=== PATIENT | female | born 1985 | race Caucasian/White ===

== ENCOUNTER 2018-05-30 18:42 | Emergency (ER) | payer OTHER ==
--- NOTE | 2018-05-30 19:43 | Emergency Department Report ---
ED Chest Pain HPI - General Chief Complaint: Chest Pain Stated Complaint: CHEST PAIN/MEDICAL CLEARANCE Time Seen by Provider: 05/30/18 19:23 Source: EMS Mode of arrival: Stretcher Limitations: No Limitations - History of Present Illness Initial Comments: 33-year-old female presents via EMS from [facility], where she is being held involuntarily secondary to a suicide attempt by cutting her wrist, with complaint of some generalized chest pain. The patient came to the psychiatric facility from [place], where she lives. The patient says that on the day where she cut her wrist, she also had passed out. EMS was called and when they got to the house the patient apparently was unresponsive and they felt she was pulseless and CPR was initiated. She was checked out at a hospital in [place], where the 1013 was placed, and she says she had some x-rays done that were negative. However the patient continues to have this chest pain. It worsens with certain movements and with palpation and she feels like the chest wall is swollen. She otherwise denies any past medical history. Severity scale (0 -10): 10 - Related Data Previous Rx's Medication Instructions Recorded Last Taken Type Ibuprofen 600 mg PO Q8H PRN #20 tablet 05/30/18 Unknown Rx Allergies Allergy/AdvReac Type Severity Reaction Status Date / Time No Known Allergies Allergy Unverified 05/30/18 20:20 Heart Score - HEART Score History: Slightly suspicious EKG: Normal Age: < 45 Risk factors: No known risk factors Troponin: < normal limit HEART Score: 0 - Critical Actions Critical Actions: 0-3 pts:0.9-1.7%risk of adverse cardiac event.Candidate for discharge ED Review of Systems ROS: Stated complaint: CHEST PAIN/MEDICAL CLEARANCE Other details as noted in HPI Comment: All other systems reviewed and negative Constitutional: denies: chills, fever Eyes: denies: eye pain, vision change ENT: denies: ear pain, throat pain Respiratory: denies: cough, shortness of breath Cardiovascular: chest pain. denies: edema Gastrointestinal: denies: abdominal pain, vomiting Genitourinary: denies: dysuria, frequency Musculoskeletal: denies: back pain, arthralgia Skin: denies: rash, lesions Neurological: denies: headache, weakness ED Past Medical Hx - Medications Home Medications: Home Medications Medication Instructions Recorded Confirmed Last Taken Type Ibuprofen 600 mg PO Q8H PRN #20 tablet 05/30/18 Unknown Rx ED Physical Exam - General Limitations: No Limitations - Other Other exam information: GENERAL: The patient is well-developed well-nourished. HEENT: Normocephalic. Atraumatic. Patient has moist mucous membranes. EYES: Extraocular motions are intact. NECK: Supple. Trachea is midline. CHEST/LUNGS: Clear to auscultation. There is no respiratory distress noted. Chest pain is reproducible to palpation of the chest spell. No crepitus or deformity. HEART/CARDIOVASCULAR: Regular. There is no tachycardia. There is no obvious murmur. ABDOMEN: Abdomen is soft, nontender. Patient has normal bowel sounds. There is no abdominal distention. SKIN: Skin is warm and dry. NEURO: The patient is awake, alert, and oriented. The patient is cooperative. The patient has no focal neurologic deficits. The patient has normal speech. MUSCULOSKELETAL: There is no tenderness or deformity. There is no evidence of acute injury. ED Course Vital Signs 05/30/18 05/30/18 05/30/18 19:29 19:58 20:30 Temperature Pulse Rate 87 Respiratory 18 18 16 Rate Blood Pressure 104/65 [Right] O2 Sat by Pulse 98 Oximetry 05/30/18 05/30/18 05/30/18 20:35 21:00 21:30 Temperature 97.8 F Pulse Rate 84 Respiratory 16 16 16 Rate Blood Pressure 113/69 [Right] O2 Sat by Pulse 100 Oximetry 05/30/18 22:59 Temperature Pulse Rate 81 Respiratory 15 Rate Blood Pressure 107/64 [Right] O2 Sat by Pulse 95 Oximetry OFE score - Ofe Score Age > 65: (0) No Aspirin use within the Past 7 Days: (0) No 3 or more CAD Risk Factors: (0) No 2 or more Angina events in past 24 hrs: (1) Yes Known CAD with more than 50% Stenosis: (0) No Elevated Cardiac Markers: (0) No ST Deviation Greater than 0.5mm: (0) No OFE Score: 1 ED Medical Decision Making - Lab Data Result diagrams: 05/30/18 19:50 05/30/18 19:50 - EKG Data -: EKG Interpreted by Me EKG shows normal: sinus rhythm, axis, intervals, QRS complexes, ST-T waves (some flattening of the T waves) - EKG Data When compared to previous EKG there are: previous EKG unavailable Interpretation: other (flattening of the T waves. No STEMI) - Radiology Data Radiology results: image reviewed interpreted by me: Chest x-ray does not show any pneumothorax, pleural effusion, pneumonia or obvious focal consolidation. - Medical Decision Making Patient presents to the emergency department with some generalized chest pains that has been going on for the past 1-2 days since the patient had some unresponsive episode and had CPR performed on her. The patient was already evaluated once at a different hospital in the emergency department for this. The pain is reproducible to palpation of the chest wall. Heart and lung sounds are normal to auscultation. EKG does not show any signs of ST elevation HI, ischemia or dysrhythmia. Labs at that unremarkable including negative troponins 2 and a negative d-dimer. She is low on the heart and OFE score. The patient appears safe for discharge home at this time but she will be actually sent back to the psychiatric facility. She's been given a prescription for anti-inflammatories for her discomfort. She has been instructed to return to the emergency Department with any worsening of her symptoms or any acute distress. - Differential Diagnosis costochondritis, HI, PE, GERD Critical Care Time: No Critical care attestation.: If time is entered above; I have spent that time in minutes in the direct care of this critically ill patient, excluding procedure time. ED Disposition Clinical Impression: Chest wall pain, Costochondritis Disposition: [id number]/TX-[id number] PSY HOSP/PSY UNIT Is pt being admited?: No Condition: Stable Instructions: Chest Pain (ED), Costochondritis (ED) Additional Instructions: Please follow up with a primary care physician once she was able to do so. Return to the emergency Department with any worsening of your symptoms or any acute distress. Prescriptions: Ibuprofen 600 mg PO Q8H PRN #20 tablet PRN Reason: Pain , Severe (7-10) Referrals: MADELINE BUTLER MD [Primary Care Provider] - [facility] Time of Disposition: 22:42
[2018-05-30 20:00] LABS: Basophils # (Auto) 0.1 K/mm3 (0.0-0.1); Basophils % (Auto) 0.5 % (0.0-1.8); Eosinophils # (Auto) 0.1 K/mm3 (0.0-0.4); Eosinophils % (Auto) 0.9 % (0.0-4.3); Hematocrit 38.3 % (30.3-42.9); Hemoglobin 13.2 gm/dl (10.1-14.3); Lymphocytes % (Auto) 23.8 % (13.4-35.0); Mean Corpuscular HGB Conc 35 % (30-34); Mean Corpuscular Volume 94 fl (79-97); Monocytes # (Auto) 0.7 K/mm3 (0.0-0.8); Monocytes % (Auto) 5.6 % (0.0-7.3); Platelet Count 293 K/mm3 (140-440); Red Blood Count 4.09 M/mm3 (3.65-5.03); Red Cell Distribution Width 13.3 % (13.2-15.2)
[2018-05-30 20:15] LABS: BUN/Creatinine Ratio 24; Blood Urea Nitrogen 12 mg/dL (7-17); Calcium 8.6 mg/dL (8.4-10.2); Hemolysis Index 104
[2018-05-30] MEDS ORDERED: NORCO 5/325 PO ONE (20:18)
[2018-05-30] MEDS ORDERED: TORADOL IM ONE (20:18)
--- NOTE | 2018-05-30 22:37 | XRay Report ---
PROCEDURE: XR CHEST 1V AP TECHNIQUE: Upright AP view of the chest was obtained. HISTORY: Chest Pain COMPARISONS: None FINDINGS: Heart size and pulmonary vasculature appear normal. No evidence of pulmonary edema or pleural effusio n. No acute infiltrates or masses are identified. No acute bone abnormalities are seen. IMPRESSION: Negative exam.. This document is electronically signed by Earnest Levy MD., May 30 2018 10:35:27 PM ET
[2018-05-30 23:00] VITALS: BP 107/64
== END 2018-05-31 00:30 ==
LOC: ED 18:42
DX: M94.0 Chondrocostal junction syndrome [Tietze] (principal)
CPT/HCPCS: 36415; 71045; 80048; 84484; 85025; 85379; 93005; 93010; 96372; 99285; J1885